=== PATIENT | female | born 1945 | race Caucasian/White ===

== ENCOUNTER 2017-03-10 13:35 | Outpatient (CLI) | payer MEDICARE ==
[~2017-03-10 13:35] MED LIST: ADVAIR 10028 PUFF/IN IN; ADVAIR 250/5028 PUFF IH; AMOXICILLIN875 MG PO; ASPIRIN325 MG PO; CEFTIN500 MG PO; CYMBALTA60 MG PO; FENTANYL 225 MCG/EAC TD; FLUTICASON0.05 MG/A1 NS; IBUPROFEN200 M1 PO; LEVOFLOXACIN 5500 MG PO; LYRICA50 MG PO; MEDROL 4MG. DOSE4 MG PO; NYSTATIN SU60 ML/BOT PO; OXYGEN2 IH; PRIMIDONE50 MG PO; PROLIA60 MG/ML SC; SINGULAIR10 MG PO; SPIRIVA HA1 PUFF/INH IH; SYMBICORT1 AER IH
[2017-03-10] MEDS ORDERED: BREO ELLIPTA1 POW IH (13:46)
[2017-03-10 14:10] VITALS: BP 125/71
== END 2017-03-10 14:30 | disposition home or self-care (01) ==
LOC: COP 13:35
DX: M81.0 Age-related osteoporosis without current pathological fracture (principal)
CPT/HCPCS: J0897